=== PATIENT | male | born 1960 | race Caucasian/White ===

== ENCOUNTER 2022-08-25 09:49 | Emergency (ER) | payer MEDICAID ==
[~2022-08-25] VITALS: Ht 170.2 cm; Wt 63.0 kg
[2022-08-25 09:56] VITALS: BP 154/84
[2022-08-25] MEDS ORDERED: ketorolac trometh inj. 60 MG/2 ML VIAL IM ONE (11:35)
[2022-08-25] MEDS ORDERED: IBUP-1986 PO (11:36)
[2022-08-25] MEDS ORDERED: ketorolac trometh. 30mg/ml inj. IM ONE (11:40)
== END 2022-08-25 12:49 | disposition home or self-care (01) ==
LOC: ER 09:50
DX: M25.511 Pain in right shoulder (principal); F12.10 Cannabis abuse, uncomplicated; F15.10 Other stimulant abuse, uncomplicated
CPT/HCPCS: 73010; 73030; 99284